=== PATIENT | female | born 1970 | race Caucasian/White ===

== ENCOUNTER 2016-11-29 16:49 | Emergency (ER) | payer MEDICAID ==
[2016-11-29] MEDS ORDERED: MORPHINE 4 MG/ML SYR ONE (17:54)
[2016-11-29] MEDS ORDERED: ONDANSETRON 4 MG VIAL ONE (17:54)
[2016-11-29] MEDS ORDERED: SODIUM CHLORIDE 0.9% 1,000 ML ONE (17:55)
[2016-11-29] MEDS ORDERED: CEFTRIAXONE 1 GM VIAL ONE (18:19)
[2016-11-29] MEDS ORDERED: SODIUM CHLORIDE 0.9% 100 ML IV ONE (18:19)
== END 2016-11-29 19:41 | disposition home or self-care (01) ==
LOC: ER 16:49
DX: N20.1 Calculus of ureter (principal); F17.210 Nicotine dependence, cigarettes, uncomplicated
CPT/HCPCS: 36415; 74176; 80053; 81001; 83690; 84703; 85025; 87088; 96361; 96365; 96375

== ENCOUNTER 2016-12-04 14:54 | Emergency (ER) | payer MEDICAID | END 2016-12-04 17:15 | disposition home or self-care (01) | LOC: ER 14:54 | DX: N20.0 Calculus of kidney (principal) | CPT/HCPCS: 81001 ==